=== PATIENT | female | born 1975 ===

== ENCOUNTER 2017-05-30 11:02 | Emergency (ER) | payer OTHER, SELFPAY ==
[2017-05-30 11:21] VITALS: PULSE 75; TEMP 97.7; O2SAT 99
[2017-05-30] MEDS ORDERED: Naproxen 550 mg Tab PO STA (11:47)
[2017-05-30] MEDS ORDERED: Naproxen 550 mg Tab PO ONE (12:02)
--- NOTE | 2017-05-30 12:17 | C.PDOC ---
History Of Present Illness 42 y/o female presents to the ER complaining of left shoulder pain which has been present for 2 weeks. Patient reports that the pain worsens with abduction. Patient also reports that she has pain in the left thumb. Patient does not have any other medical complaints. Time Seen by Provider: 05/30/17 11:26 Chief Complaint (Nursing): Upper Extremity Problem/Injury History Per: Patient History/Exam Limitations: no limitations Onset/Duration Of Symptoms: Days Current Symptoms Are (Timing): Still Present Severity: Moderate Past Medical History Reviewed: Historical Data, Nursing Documentation, Vital Signs Vital Signs: Last Vital Signs Temp 97.7 F 05/30/17 11:17 Pulse 75 05/30/17 12:35 Resp 15 05/30/17 12:35 BP 104/74 05/30/17 12:35 Pulse Ox 99 05/30/17 13:44 - Medical History PMH: No Chronic Diseases Surgical History: No Surg Hx Family History: States: No Known Family Hx - Social History Hx Alcohol Use: No Hx Substance Use: No Review Of Systems Except As Marked, All Systems Reviewed And Found Negative. Constitutional: Negative for: Fever, Chills Musculoskeletal: Positive for: Shoulder Pain (left shoulder), Hand Pain (left thumb pain) Neurological: Negative for: Weakness, Numbness Physical Exam - Physical Exam Appears: Non-toxic, No Acute Distress, Other (comfortable) Skin: Normal Color, Warm Head: Atraumatic, Normacephalic Eye(s): bilateral: Normal Inspection, PERRL Nose: Normal Oral Mucosa: Moist Neck: Supple Chest: Symmetrical Cardiovascular: Rhythm Regular Respiratory: Normal Breath Sounds, No Accessory Muscle Use, No Rales, No Rhonchi , No Wheezing Extremity: Normal ROM (rom intact for shoulders although pain worsens with abduction), Tenderness (mildly tender to palpation at the superior aspect of scapula ), Capillary Refill (< 2 seconds), No Deformity, No Swelling (left shoulder and left thumb), Other (no tenderness in left thumb, normal ROM in left thumb) Pulses: Left Radial: Normal ED Course And Treatment O2 Sat by Pulse Oximetry: 99 (RA) Pulse Ox Interpretation: Normal - Other Rad No standard instances X-Ray: Viewed By Me, Read By Radiologist Interpretation: PROCEDURE: Radiographs of the Left Shoulder. HISTORY: left shoulder pain after fall. COMPARISON: None available. FINDINGS: BONES: No acute displaced fracture. The distal clavicle and underlying ribs appear intact. JOINTS: No acute dislocation. SOFT TISSUES: Soft tissues appear unremarkable. No evidence of radiopaque foreign body. IMPRESSION: No acute displaced fracture or dislocation evident. If symptoms persist or if there is continued clinical concern, x-ray follow-up in 7-10 days should be considered. X-Ray X-Ray: Viewed By Me, Read By Radiologist Interpretation: PROCEDURE: Left Thumb radiographs. HISTORY: left thumb pain after fall. COMPARISON: None available. TECHNIQUE: AP radiograph of the left hand, as well as spot oblique and lateral images of thumb were obtained. FINDINGS: LEFT THUMB: Unremarkable left 1st digit without acute displaced fracture identified. Remainder of the left hand (as seen on the AP view) grossly unremarkable. JOINTS: No dislocation. SOFT TISSUES: Unremarkable. No evidence of radiopaque foreign body. OTHER FINDINGS: None. IMPRESSION: No acute displaced fracture or subluxation identified. If symptoms persist or if there is continued clinical concern, x-ray follow-up in 7-10 days should be considered. Progress Note: X-Rays of the left shoulder and left hand thumb are normal. Patient given Naproxen. Patient has been told to follow up with Orthopedics. Disposition Counseled Patient/Family Regarding: Studies Performed, Diagnosis, Need For Followup, Rx Given - Disposition Referrals: Aquilino Hankins MD [Staff Provider] - [facility] [Outside] Disposition: HOME/ ROUTINE Disposition Time: 12:40 Condition: STABLE Additional Instructions: EGUIMIENTO CON ORTOPEDIA DENTRO DE 1 SEMANA USE MEDICAMENTOS SEGN SEA NECESARIO PARA DOLOR REGRESE AL PARAMJIT DE EMERGENCIA SI LOS SNTOMAS EMPEORAN Prescriptions: Cyclobenzaprine [Flexeril] 10 mg PO BID PRN #15 tab PRN Reason: Muscle Spasm Naproxen 375 mg PO BID PRN #20 tablet PRN Reason: pain Instructions: Shoulder Sprain (ED), Finger Sprain (ED) Forms: [employer] ([place] Citizen), Work Excuse Print Language: BURMESE - POA Present On Arrival: Falls Or Trauma - Clinical Impression Clinical Impression: Sprain of left shoulder, Thumb sprain - Scribe Statement The provider has reviewed the documentation as recorded by the Anitra Stanton Provider Attestation: All medical record entries made by the Scribe were at my direction and personally dictated by me. I have reviewed the chart and agree that the record accurately reflects my personal performance of the history, physical exam, medical decision making, and the department course for this patient. I have also personally directed, reviewed, and agree with the discharge instructions and disposition.
[2017-05-30 12:49] VITALS: BP 104/74; RESP 15
--- NOTE | 2017-05-30 13:27 | RAD ---
PROCEDURE: Left Thumb radiographs. HISTORY: left thumb pain after fall COMPARISON: None available. TECHNIQUE: AP radiograph of the left hand, as well as spot oblique and lateral images of thumb were obtained. FINDINGS: LEFT THUMB: Unremarkable left 1st digit without acute displaced fracture identified. Remainder of the left hand (as seen on the AP view) grossly unremarkable. JOINTS: No dislocation. SOFT TISSUES: Unremarkable. No evidence of radiopaque foreign body. OTHER FINDINGS: None. IMPRESSION: No acute displaced fracture or subluxation identified. If symptoms persist or if there is continued clinical concern, x-ray follow-up in 7-10 days should be considered.
--- NOTE | 2017-05-30 13:28 | RAD ---
PROCEDURE: Radiographs of the Left Shoulder HISTORY: left shoulder pain after fall COMPARISON: None available. FINDINGS: BONES: No acute displaced fracture. The distal clavicle and underlying ribs appear intact. JOINTS: No acute dislocation. SOFT TISSUES: Soft tissues appear unremarkable. No evidence of radiopaque foreign body. IMPRESSION: No acute displaced fracture or dislocation evident. If symptoms persist or if there is continued clinical concern, x-ray follow-up in 7-10 days should be considered.
== END 2017-05-30 12:50 | disposition home or self-care (01) ==
LOC: C.ER 11:02
DX: S43.402A Unspecified sprain of left shoulder joint, initial encounter (principal); S63.602A Unspecified sprain of left thumb, initial encounter; X58.XXXA Exposure to other specified factors, initial encounter

== ENCOUNTER 2018-03-11 10:04 | Emergency (ER) | payer OTHER ==
[2018-03-11 10:19] VITALS: RESP 18
[2018-03-11] MEDS ORDERED: Naproxen 550 mg Tab PO STA (10:47)
[2018-03-11] MEDS ORDERED: Naproxen 550 mg Tab PO ONE (10:59)
--- NOTE | 2018-03-11 11:37 | C.PDOC ---
History Of Present Illness 42 year old female presents to the ED for evaluation of right wrist pain and right elbow pain s/p an injury that occured 1 month ago. Patient reports a mechanical fall where she fell onto her right arm. She admits she was not evaluated by a doctor at the time. Patient denies head injury or LOC, sensory changes, or any other associated symptoms. Time Seen by Provider: 03/11/18 10:24 Chief Complaint (Nursing): Finger,Hand,&Wrist History Per: Patient History/Exam Limitations: no limitations Onset/Duration Of Symptoms: Days Current Symptoms Are (Timing): Still Present Severity: Mild Past Medical History Reviewed: Historical Data, Nursing Documentation, Vital Signs Vital Signs: Last Vital Signs Temp 98.7 F 03/11/18 10:19 Pulse 70 03/11/18 10:19 Resp 18 03/11/18 10:19 BP 115/75 03/11/18 10:19 Pulse Ox 98 03/11/18 10:19 - Medical History PMH: No Chronic Diseases Family History: States: No Known Family Hx - Social History Hx Alcohol Use: No Hx Substance Use: No - Immunization History Hx Tetanus Toxoid Vaccination: No Hx Influenza Vaccination: No Hx Pneumococcal Vaccination: No Review Of Systems Constitutional: Negative for: Weakness Cardiovascular: Negative for: Chest Pain, Palpitations Respiratory: Negative for: Shortness of Breath Gastrointestinal: Negative for: Nausea, Vomiting, Abdominal Pain Musculoskeletal: Positive for: Other ((+) right wrist pain. (+) right elbow pain.) Neurological: Negative for: Weakness, Numbness, Incoordination, Headache, Other (no LOC) Physical Exam - Physical Exam Appears: Well, Non-toxic, No Acute Distress Skin: Normal Color, Warm, Dry Head: Atraumatic, Normacephalic Eye(s): bilateral: Normal Inspection, PERRL, EOMI Oral Mucosa: Moist Cardiovascular: Rhythm Regular Respiratory: Normal Breath Sounds, No Rales, No Rhonchi, No Wheezing Extremity: Normal ROM (to the right elbow, wrist, and digits.), Tenderness (Right wrist: tenderness to palpation greatest at the the lateral aspect. Tenderness to the right distal forearm. Tenderness to the rigth elbow. No deformities, no swelling or erythema ), Capillary Refill (less than 2 seconds. ), No Deformity, No Swelling Extremity: Bilateral: Normal Color And Temperature, Normal ROM Pulses: Left Radial: Normal, Right Radial: Normal Neurological/Psych: Oriented x3, Normal Motor, Normal Sensation Gait: Steady ED Course And Treatment O2 Sat by Pulse Oximetry: 98 (RA) Pulse Ox Interpretation: Normal - Other Rad X-ray RT Elbow X-Ray: Viewed By Me, Read By Radiologist Interpretation: FINDINGS: BONES: Bone alignment and mineralization are normal. There is no acute displaced fracture or bone destruction. JOINTS: Normal. No osteoarthritis. SOFT TISSUES: Normal. JOINT EFFUSION: None. OTHER FINDINGS: None. IMPRESSION: No acute fracture or dislocation. X-ray RT Wrist X-Ray: Viewed By Me, Read By Radiologist Interpretation: FINDINGS: BONES: Bone alignment and mineralization are normal. There is no acute displaced fracture or bone destruction. JOINTS: Normal. No dislocation. SOFT TISSUES: Normal. OTHER FINDINGS: None. IMPRESSION: No acute fracture or dislocation. Progress Note: Xrays of right elbow and right wrist ordered and reviewed. Patient given PO Naprosyn in ED. Right wrist removable cockup splint applied by strain technician. Reevaluation Time: 12:00 Reassessment Condition: Improved (On reassessment, patient's pain improved. She was instructed to follow up with orthopedics within 1 week, Rx for Naprosyn given. Patient understands she should return to ED if symptoms worsen.) Disposition Counseled Patient/Family Regarding: Studies Performed, Diagnosis, Need For Followup, Rx Given - Disposition Referrals: [facility] at [facility] [Outside] Jose Dickinson III, MD [Staff Provider] - Disposition: HOME/ ROUTINE Disposition Time: 12:00 Condition: STABLE Additional Instructions: FOLLOW UP WITH ORTHOPEDICS WITHIN 1 WEEK USE MEDICATION NEEDED FOR PAIN RETURN TO EMERGENCY ROOM IF SYMPTOMS WORSEN SEGUIR CON ORTOPEDIA EN WALT SEMANA UTILICE MEDICAMENTOS JESSICA SE NECESITA PARA EL DOLOR VUELVA A LA PARAMJIT DE EMERGENCIA SI LOS SNTOMAS SE ANDERSON PROBLEMAS Prescriptions: RX: Naproxen 375 mg PO BID PRN #20 tablet PRN Reason: pain Instructions: Wrist Sprain (DC) Forms: [employer] (Russian) Print Language: ENGLISH - Clinical Impression Clinical Impression: Right wrist sprain - Scribe Statement The provider has reviewed the documentation as recorded by the Scribe (Judit Downs) Provider Attestation: All medical record entries made by the Scribe were at my direction and personally dictated by me. I have reviewed the chart and agree that the record accurately reflects my personal performance of the history, physical exam, medical decision making, and the department course for this patient. I have also personally directed, reviewed, and agree with the discharge instructions and disposition.
--- NOTE | 2018-03-11 11:47 | RAD ---
Date of service: 03/11/2018 PROCEDURE: Radiographs of the right elbow. HISTORY: RIGHT ELBOW PAIN AFTER FALL COMPARISON: No prior. FINDINGS: BONES: Bone alignment and mineralization are normal. There is no acute displaced fracture or bone destruction. JOINTS: Normal. No osteoarthritis. SOFT TISSUES: Normal. JOINT EFFUSION: None. OTHER FINDINGS: None. IMPRESSION: No acute fracture or dislocation.
--- NOTE | 2018-03-11 11:49 | RAD ---
Date of service: 03/11/2018 PROCEDURE: Right Wrist Radiographs. HISTORY: RIGHT WRIST PAIN AFTER FALL COMPARISON: None. FINDINGS: BONES: Bone alignment and mineralization are normal. There is no acute displaced fracture or bone destruction. JOINTS: Normal. No dislocation. SOFT TISSUES: Normal. OTHER FINDINGS: None. IMPRESSION: No acute fracture or dislocation.
[2018-03-11 11:52] VITALS: BP 119/75; PULSE 63; TEMP 98.6
[2018-03-11 12:30] VITALS: O2SAT 98
== END 2018-03-11 12:09 | disposition home or self-care (01) ==
LOC: C.ER 10:04
DX: S63.501A Unspecified sprain of right wrist, initial encounter (principal); W19.XXXA Unspecified fall, initial encounter

== ENCOUNTER 2018-04-23 10:23 | Emergency (ER) | payer OTHER ==
[2018-04-23 10:42] VITALS: TEMP 98.5
[2018-04-23 11:10] LABS: HCG,QUALITATIVE URINE NEGATIVE (NEGATIVE)
[2018-04-23 11:16] LABS: SQUAMOUS EPITHIAL 7 /hpf (0-5); URINE BILIRUBIN NEGATIVE (NEGATIVE); URINE BLOOD 2+ (NEGATIVE); URINE CLARITY Clear (Clear); URINE COLOR Yellow (YELLOW); URINE GLUCOSE (UA) NORMAL (Normal); URINE LEUKOCYTE ESTERASE NEG Leu/uL (Negative); URINE PROTEIN NEGATIVE (NEGATIVE); URINE UROBILINOGEN NORMAL mg/dL (0.2-1.0)
[2018-04-23] MEDS ORDERED: Amoxicillin-Clav 875-125 mg Tab PO STA (12:13)
--- NOTE | 2018-04-23 12:14 | C.PDOC ---
History Of Present Illness 43 year old female w/o significant PMHx presents to the ED with multiple complaints: frontal headache x3 days, suprapubic pain for 1-2 weeks, left breast itchiness#1 month. Patient reports, headaches are mild, intermittent, frontal. Pt admits, cold sx with nasal congestion, runny nose 1-2 weeks ago. Pt Denies high fever, chills, worse headache of life, dizziness, vertigo, earache or discharge, neck pain, drooling, dysphagia, dyspnea, CP, SOB, skin changes over Left breast or nipple discharge, abd. pain, nausea, vomiting. Ambulate to Ed for evaluation, not in any apparent distress. Time Seen by Provider: 04/23/18 11:53 Chief Complaint (Nursing): Headache History Per: Patient History/Exam Limitations: no limitations Onset/Duration Of Symptoms: Days Current Symptoms Are (Timing): Still Present Past Medical History Reviewed: Historical Data, Nursing Documentation, Vital Signs Vital Signs: Last Vital Signs Temp 98.5 F 04/23/18 10:37 Pulse 62 04/23/18 10:37 Resp 18 04/23/18 10:37 BP 122/78 04/23/18 10:37 Pulse Ox 99 04/23/18 10:37 Family History: States: Unknown Family Hx - Social History Hx Alcohol Use: No Hx Substance Use: No - Immunization History Hx Tetanus Toxoid Vaccination: No Hx Influenza Vaccination: No Hx Pneumococcal Vaccination: No Review Of Systems Except As Marked, All Systems Reviewed And Found Negative. Constitutional: Negative for: Fever, Chills Eyes: Negative for: Vision Change ENT: Positive for: Nose Discharge, Nose Congestion Respiratory: Positive for: Cough Gastrointestinal: Positive for: Abdominal Pain (suprapubic. ). Negative for: Nausea, Vomiting Skin: Positive for: Other ((+) left breast itchiness. (-) nipple discharge. ) Neurological: Positive for: Headache, Dizziness Physical Exam - Physical Exam Appears: Well, Non-toxic, No Acute Distress Skin: Normal Color, Warm, Dry, No Rash Head: Normacephalic Eye(s): bilateral: PERRL Ear(s): Bilateral: Normal Nose: No Flaring, Discharge (mild B/L congestion with scant clear discharge), Other (mild B/L paranasal tenderness and frontal tenderness. No edema, no erythema.) Oral Mucosa: Moist, No Drooling Tongue: Normal Appearing Lips: Normal Appearing Throat: No Erythema, No Drooling Neck: Trachea Midline, Supple Lymphatic: No Adenopathy (cervical) Chest: Other (normal exam of B/L breast, no erythema, no palpable mass, no nipple discharge) Cardiovascular: Rhythm Regular, No Murmur, No JVD Respiratory: No Decreased Breath Sounds, No Accessory Muscle Use, No Stridor, No Wheezing Gastrointestinal/Abdominal: Soft, No Tenderness, No Distention, No Guarding Back: No CVA Tenderness Extremity: Normal ROM, No Deformity, No Swelling Neurological/Psych: Oriented x3, Normal Speech ED Course And Treatment O2 Sat by Pulse Oximetry: 99 (RA) Pulse Ox Interpretation: Normal Progress Note: Plan: Prednisone. Tylenol. Augmentin. HGC Urine. Urinalysis. On re-eval, pt is afebrile, hemodynamically stable. Non-toxic. Tolerate PO well in ED. PulseOx 99% on RA. ENT: no acute findings. Uvula midline, no edema. Neck: Supple, (-) JVD. Lungs: CTA B/L, BS equal B/L. Abd: Soft, non-tender. Neurologically intact. Pt has clinical findings c/w sinuses headache, suprapubic pain. Pt advised. ref. to f/u with PMD in2 -3 days for re-eavl. return if any new changes. Disposition Counseled Patient/Family Regarding: Studies Performed, Diagnosis, Need For Followup, Rx Given - Disposition Referrals: Dayami Veronica MD [Staff Provider] - Disposition: HOME/ ROUTINE Disposition Time: 12:13 Condition: STABLE Additional Instructions: Take medication as prescribed Follow up with PMD, Neurologist in2 -3 days for re-evaluation. return to ED if any worsening or new changes. Prescriptions: Amoxicillin/Clavulanate [Augmentin 875 MG-125 MG] 1 tab PO BID #14 tab Aspirin/Acetaminophen/Caffeine [Excedrin Migraine Caplet] 1 each PO Q6 #10 tablet Prednisone [Deltasone] 40 mg PO DAILY #6 tablet Instructions: Sinusitis in Adults, Dysuria, Adult (DC) Forms: [employer] (Malay) Print Language: HUNGARIAN - Clinical Impression Clinical Impression: Sinusitis, Suprapubic pain - PA / SPECIAL EDUCATION SECRETARY / Resident Statement MD/DO has reviewed & agrees with the documentation as recorded. - Scribe Statement The provider has reviewed the documentation as recorded by the Scribe (Judit Downs) All medical record entries made by the Scribe were at my direction and personally dictated by me. I have reviewed the chart and agree that the record accurately reflects my personal performance of the history, physical exam, medical decision making, and the department course for this patient. I have also personally directed, reviewed, and agree with the discharge instructions and disposition.
[2018-04-23] MEDS ORDERED: Amoxicillin-Clav 875-125 mg Tab PO ONE (12:21)
[2018-04-23 12:41] VITALS: BP 126/74; PULSE 79; RESP 16
[2018-04-23 12:44] VITALS: O2SAT 99
== END 2018-04-23 12:41 | disposition home or self-care (01) ==
LOC: C.ER 10:23
DX: J32.9 Chronic sinusitis, unspecified (principal); R10.30 Lower abdominal pain, unspecified

== ENCOUNTER 2018-07-11 10:21 | Outpatient (CLI) | payer OTHER | END 2018-07-11 10:22 | disposition home or self-care (01) | LOC: C.MAMMO 10:21 | DX: Z12.31 Encounter for screening mammogram for malignant neoplasm of breast (principal) ==

== ENCOUNTER 2018-08-29 08:09 | Outpatient (CLI) | payer OTHER | END 2018-08-29 08:10 | disposition home or self-care (01) | LOC: C.USIC 08:09 ==